=== PATIENT | female | born 1980 | race Caucasian/White ===

== ENCOUNTER 2018-03-05 10:34 | Emergency (ER) | payer OTHER ==
[2018-03-05 10:40] VITALS: BP 102/61; PULSE 102; RESP 18; TEMP 98.1
--- NOTE | 2018-03-05 11:06 | ED ---
General Adult HPI - General Chief complaint: Extremity Injury, Lower Stated complaint: Hand pain & swollen eye Source: patient Mode of arrival: ambulatory Limitations: no limitations - History of Present Illness Initial comments: Dictation was produced using [employer] dictation software. please excuse any grammatical, word or spelling errors. Chief Complaint: 38-year-old female who is from [place] visiting [facility] for a presents with right eyelid erythema and right wrist pain. History of Present Illness: She had a carpal tunnel surgery performed 2 weeks ago in [place]. States that over the past 2 days there. To be alone around her surgical site. She denies any drainage. No worsening erythema. She states she does have the stitches removed in about 3 days ago prior to flying into [facility]. Patient states she has does have some pain over the thenar eminence. The ROS documented in this emergency department record has been reviewed and confirmed by me. Those systems with pertinent positive or negative responses have been documented in the HPI. All other systems are other negative and/or noncontributory. - Related Data Allergies Allergy/AdvReac Type Severity Reaction Status Date / Time sulfamethoxazole Allergy Anaphylaxis Verified 03/05/18 10:41 [From Bactrim] trimethoprim [From Bactrim] Allergy Anaphylaxis Verified 03/05/18 10:41 tramadol AdvReac Vomiting Verified 03/05/18 10:41 Review of Systems ROS Statement: Those systems with pertinent positive or pertinent negative responses have been documented in the HPI. ROS Other: All systems not noted in ROS Statement are negative. Past Medical History Past Medical History: No Reported History History of Any Multi-Drug Resistant Organisms: None Reported Past Surgical History: Cholecystectomy, Tubal Ligation Additional Past Surgical History / Comment(s): bilateral wrist carpal tunnel, wisdom teeth Past Psychological History: No Psychological Hx Reported Smoking Status: Never smoker Past Alcohol Use History: None Reported Past Drug Use History: None Reported General Exam - General Exam Comments Initial Comments: PHYSICAL EXAM: General Impression: Alert and oriented x3, not in acute distress HEENT: Normocephalic atraumatic, extra-ocular movements intact, pupils equal and reactive to light bilaterally, mucous membranes moist, eyelid at the medial aspect is slightly erythematous. No swelling. Cardiovascular: Heart regular rate and rhythm, S1&S2 audible, no murmurs, rubs or gallops Chest: Lungs clear to auscultation bilaterally, no rhonchi, no wheeze, no rales Abdomen: Bowel sounds present, abdomen soft, non-tender, non-distended, no organomegaly Musculoskeletal: Pulses present and equal in all extremities, no peripheral edema Motor: Power 5/5 bilaterally, no focal deficits noted Neurological: CN II-XII grossly intact, no focal motor or sensory deficits noted Skin: Surgical site clean and dry and intact. There is some tenderness to palpation about the surgical site. No drainage. No signs of infection. Non- erythematous. Psych: Normal affect and mood Limitations: no limitations Course Vital Signs 03/05/18 10:36 Temperature 98.1 F Pulse Rate 102 H Respiratory 18 Rate Blood Pressure 102/61 O2 Sat by Pulse 97 Oximetry Medical Decision Making - Medical Decision Making ED course: 38-year-old female presents with right wrist surgical site pain status post carpal tunnel surgery done 2 weeks ago and right eyelid redness. As upon arrival shows heart rate of 12, rest of vital signs within normal limits. Physical examination does not show any signs of infection to the right wrist surgical site. At this point there is very low clinical suspicion that this represents an infectious process. Patient's right eyelid appears to be signs of mild stye eye. Patient advised to utilize warm compresses to the eye on a regular basis to prevent any worsening symptoms. Patient told to come back to the emergency department on Saturday or Saturday if she does not have any improvement symptoms to the right wrist. Patient understandable agreeable to plan. She states she'll be in town until Saturday. Disposition Clinical Impression: Pain at surgical site Disposition: HOME SELF-CARE Condition: Good Instructions: [place] (ED), Carpal Tunnel Surgery (DC) Is patient prescribed a controlled substance at d/c from ED?: No Referrals: None,Stated [Primary Care Provider] - 1-2 days Time of Disposition: 11:06
[2018-03-05] MEDS ORDERED: HYDROcodone/APAP 5-325MG 1 EACH TAB PO STA (11:24)
== END 2018-03-05 11:30 | disposition home or self-care (01) ==
LOC: EC 10:34
DX: M25.531 Pain in right wrist (principal); G89.18 Other acute postprocedural pain; H57.8 Other specified disorders of eye and adnexa; Z98.890 Other specified postprocedural states; Z88.2 Allergy status to sulfonamides; Z88.6 Allergy status to analgesic agent
CPT/HCPCS: 99283